=== PATIENT | female | born 2000 | race African-American/Black ===

== ENCOUNTER 2022-12-12 10:38 | Inpatient (IN) | payer OTHER ==
[2022-12-12] VITALS (36 sets, daily range): BP systolic 127–191; BP diastolic 68–106
[~2022-12-12] VITALS: Ht 160 cm; Wt 80.1 kg
[2022-12-12] MEDS ORDERED: LACTATED RINGER'S 1000 ML IV STA ×2 (10:59→15:19)
[2022-12-12] MEDS ORDERED: PROMETHAZINE 25MG/ML 1ML VIAL IV ONE (11:00)
[2022-12-12] MEDS ORDERED: BUTORPHANOL 2 MG/ML 1ML VIAL IV ONE (11:00)
[2022-12-12] MEDS ORDERED: HOME MED LIST COMPLETE! XX SCH (11:30)
[2022-12-12] MEDS ORDERED: ACET325C5 PO (11:33)
[2022-12-12] MEDS ORDERED: MULTTAB20 PO (11:33)
[2022-12-12] MEDS: LR 1,000 ML IV SCH ×2 (12:21→21:51)
[2022-12-12] MEDS ORDERED: CARBOPROST TROMETHAMINE 250 MCG/ML AMP IM PRN (15:00)
[2022-12-12] MEDS ORDERED: OXYTOCIN DRIP 30 UNITS in IV 1 EA IV PRN ×4 (15:00)
[2022-12-12] MEDS ORDERED: TRANEXAMIC ACID INJection 1,000 MG in NS 100 ML IV PRN (15:00)
[2022-12-12 15:43] LABS: TOTAL PROTEIN,RANDOM URINE 16.8 MG/DL (0.0-14.0)
[2022-12-12 15:46] LABS: HEMATOCRIT 32.5 % (36.0-47.0); HEMOGLOBIN 10.3 g/dl (12.0-15.5); MEAN CORPUSCULAR HEMOGLOBIN 24.8 pg (27.0-33.0); MEAN CORPUSCULAR HGB CONC 31.7 g/dl (32.0-36.5); MEAN CORPUSCULAR VOLUME 78.1 fl (80.0-96.0); PLATELET COUNT, AUTOMATED 234 10^3/uL (150-450); RED BLOOD COUNT 4.16 10^6/uL (4.00-5.40); WHITE BLOOD COUNT 10.7 10^3/uL (4.0-10.0)
[2022-12-12 15:48] LABS: CREATININE,RANDOM URINE 38.5 MG/DL
[2022-12-12] MEDS ORDERED: ONDANSETRON 4MG 2ML VIAL IV PRN (16:00)
[2022-12-12] MEDS ORDERED: ePHEDrine SULFATE 25 MG/5 ML(5MG/ML) SYRINGE IVP PRN (16:00)
[2022-12-12] MEDS ORDERED: LR 500 ML IV PRN (16:00)
[2022-12-12] MEDS ORDERED: diphenhydrAMINE 50MG/ML VIAL IV PRN (16:00)
[2022-12-12] MEDS ORDERED: EPIDURAL/PCA KEYS XX PRN (16:00)
[2022-12-12] MEDS ORDERED: NALOXONE INJ 0.4MG/1ML VIAL IV PRN (16:00)
[2022-12-12] MEDS: FENTANYL/ROPIVACAINE/NACL BAG 100 ML EPIDURAL SCH ×2 (16:14→23:56)
[2022-12-12 16:25] LABS: URIC ACID 5.8 MG/DL (3.1-7.8)
[2022-12-12 16:27] LABS: LDH LACTATE DEHYDROGENASE 188 U/L (120-246)
[2022-12-12 16:32] LABS: ALT/SGPT 14 U/L (7.0-40); AST/SGOT 18 U/L (<34); BILIRUBIN,TOTAL 0.9 MG/DL (0.3-1.2); CREATININE FOR GFR 0.58 MG/DL (0.55-1.30); GLOMERULAR FILTRATION RATE > 60.0 (>60)
[2022-12-12] MEDS ORDERED: LR 1,000 ML IV SCH (21:45)
[2022-12-12] MEDS ORDERED: OXYTOCIN DRIP 30 UNITS in IV 1 EA IV SCH (21:45)
[2022-12-13] VITALS (39 sets, daily range): BP systolic 128–200; BP diastolic 64–108
[2022-12-13] MEDS ORDERED: diphenhydrAMINE 50MG/ML VIAL IV ONE (05:05)
[2022-12-13] MEDS ORDERED: LABETALOL 100MG/20ML VIAL IV STA ×2 (05:26→05:55)
[2022-12-13] MEDS ORDERED: hydrALAZINE 20MG/ML 1ML VIAL IV ONE (07:25)
[2022-12-13] MEDS ORDERED: hydrALAZINE 20MG/ML 1ML VIAL As Ordered ONE (07:26)
[2022-12-13] MEDS: FENTANYL/ROPIVACAINE/NACL BAG 100 ML EPIDURAL SCH ×2 (08:00→14:33)
[2022-12-13] MEDS ORDERED: CALCIUM GLUCONATE 1,000 MG in D5W MINI-BAG PLUS 100 ML IV PRN (08:00)
[2022-12-13] MEDS ORDERED: MAG Sulf (L&D) 4 GM/100 ML 4 GM in IV 1 EA IV ONE (08:00)
[2022-12-13] MEDS: MAG Sulf (OBGYN) 20GM/500ML 20,000 MG in IV 1 EA IV SCH ×2 (08:31→18:35)
[2022-12-13 09:51] LABS: TOTAL PROTEIN,RANDOM URINE 49.5 MG/DL (0.0-14.0)
[2022-12-13 09:56] LABS: CREATININE,RANDOM URINE 42.5 MG/DL
[2022-12-13 10:06] LABS: URIC ACID 6.6 MG/DL (3.1-7.8)
[2022-12-13 10:09] LABS: LDH LACTATE DEHYDROGENASE 269 U/L (120-246)
[2022-12-13 10:12] LABS: ALT/SGPT 14 U/L (7.0-40); AST/SGOT 21 U/L (<34); BILIRUBIN,TOTAL 1.7 MG/DL (0.3-1.2); CREATININE FOR GFR 0.94 MG/DL (0.55-1.30); GLOMERULAR FILTRATION RATE > 60.0 (>60)
[2022-12-13] MEDS ORDERED: ceFAZolin SOD 2 GM in IV 1 EA IV ONE (14:25)
[2022-12-13] MEDS ORDERED: AZITHROMYCIN INJ 500 MG, VIAL MATE ADAPTER 1 EACH in NS 250 ML IV ONE (14:25)
[2022-12-13] MEDS ORDERED: OXYTOCIN INJ 10UNITS/ML 1ML VIAL As Ordered ONE (15:14)
[2022-12-13] MEDS ORDERED: MORPHINE PRES-FREE INJ 10 MG/10 ML VIAL As Ordered ONE (15:14)
[2022-12-13] MEDS ORDERED: fentaNYL 100 MCG/2 ML INJECTION As Ordered ONE (15:14)
[2022-12-13] MEDS ORDERED: LIDOCAINE 2% W/EPINEPHRINE 20ML VIAL **PRES FREE As Ordered ONE (15:14)
[2022-12-13] MEDS ORDERED: LIDOCAINE 2% INJ 100 MG/5 ML SYRINGE As Ordered ONE ×2 (15:15→15:16)
[2022-12-13 15:52] LABS: CORD GAS ABE V -4.6; CORD GAS HCO3 V 23.1 MEQ/L; CORD GAS O2 SAT V 33.9 %; CORD GAS PCO2 V 52.6 mmHg; CORD GAS PH V 7.26 UNITS; CORD GAS PO2 V 17.5 mmHg; CORD GAS SBC V 19.2 MEQ/L; CORD GAS TCO2 V 24.7 MEQ/L
[2022-12-13] MEDS ORDERED: ACETAMINOPHEN 1000MG 100ML IV BAG As Ordered ONE (15:54)
[2022-12-13] MEDS ORDERED: KETOROLAC 60MG 2ML VIAL As Ordered ONE (15:54)
[2022-12-13] MEDS ORDERED: MORPHINE 2 MG/ML 1ML VIAL IV PRN (16:25)
[2022-12-13] MEDS ORDERED: OXYTOCIN DRIP 30 UNITS in IV 1 EA IV SCH ×4 (16:25)
[2022-12-13] MEDS ORDERED: LR 1,000 ML IV SCH (16:25)
[2022-12-13] MEDS ORDERED: ONDANSETRON 4MG 2ML VIAL IV PRN (16:25)
[2022-12-13] MEDS ORDERED: oxyCODONE 5MG TAB PO PRN (16:25)
[2022-12-13] MEDS ORDERED: RHOGAM 300MCG (1500IU) INJ IM SCH (16:25)
[2022-12-13] MEDS ORDERED: MOM 30ML SUSPENSION UDC PO PRN (16:25)
[2022-12-13] MEDS ORDERED: OXYTOCIN 30UNITS IN 0.9% NaCl 500ML IV BAG As Ordered ONE (16:34)
[2022-12-13] MEDS: NIFEdipine 30MG XL TAB PO SCH (19:04)
[2022-12-13] MEDS ORDERED: NALBUPHINE HCL 10 MG/ML 1ML AMP IV PRN (19:50)
[2022-12-13] MEDS: DOCUSATE SODIUM 100MG CAPSULE PO SCH (20:57)
[2022-12-13] MEDS: LR 1,000 ML IV SCH (21:35)
[2022-12-13] MEDS: KETOROLAC 30 MG/ML 1ML VIAL IV SCH (22:05)
[2022-12-14] VITALS (14 sets, daily range): BP systolic 128–146; BP diastolic 68–91
[2022-12-14] MEDS: KETOROLAC 30 MG/ML 1ML VIAL IV SCH ×2 (04:08→10:22)
[2022-12-14] MEDS: MAG Sulf (OBGYN) 20GM/500ML 20,000 MG in IV 1 EA IV SCH (04:08)
[2022-12-14] MEDS: ACETAMINOPHEN 500 MG TAB PO PRN ×2 (05:30→17:05)
[2022-12-14 06:51] LABS: HEMATOCRIT 26.5 % (36.0-47.0); HEMOGLOBIN 8.4 g/dl (12.0-15.5); MEAN CORPUSCULAR HEMOGLOBIN 24.6 pg (27.0-33.0); MEAN CORPUSCULAR HGB CONC 31.7 g/dl (32.0-36.5); MEAN CORPUSCULAR VOLUME 77.5 fl (80.0-96.0); PLATELET COUNT, AUTOMATED 206 10^3/uL (150-450); RED BLOOD COUNT 3.42 10^6/uL (4.00-5.40); WHITE BLOOD COUNT 20.6 10^3/uL (4.0-10.0)
[2022-12-14 07:28] LABS: ALBUMIN 1.9 G/DL (3.2-5.2); ALKALINE PHOSPHATASE 144 U/L (46-116); ALT/SGPT 12 U/L (7.0-40); AST/SGOT 18 U/L (<34); BILIRUBIN,TOTAL 1.1 MG/DL (0.3-1.2); BLOOD UREA NITROGEN 6 MG/DL (9-23); CALCIUM LEVEL 7.2 MG/DL (8.5-10.1); CARBON DIOXIDE LEVEL 26 MMOL/L (20-31); CHLORIDE LEVEL 103 MMOL/L (98-107); CREATININE FOR GFR 0.76 MG/DL (0.55-1.30); GLOMERULAR FILTRATION RATE > 60.0 (>60); GLUCOSE, FASTING 99 MG/DL (60-100); POTASSIUM SERUM 3.1 MMOL/L (3.5-5.1); SODIUM LEVEL 137 MMOL/L (136-145); TOTAL PROTEIN 4.4 G/DL (5.7-8.2)
[2022-12-14] MEDS ORDERED: NIFEdipine 30MG XL TAB PO SCH (09:00)
[2022-12-14] MEDS: PRENATAL VITAMINS CHEWABLE TABLET PO SCH (10:23)
[2022-12-14] MEDS: DOCUSATE SODIUM 100MG CAPSULE PO SCH ×2 (10:23→21:18)
[2022-12-14] MEDS: FERROUS SULFATE 325MG TAB PO SCH (10:31)
[2022-12-14] MEDS: NIFEdipine 30MG XL TAB PO SCH (10:32)
[2022-12-14] MEDS: SIMETHICONE 80MG CHEW TAB PO PRN (18:07)
[2022-12-14] MEDS: IBUPROFEN 800 MG TAB PO SCH (18:08)
[2022-12-15] MEDS: ACETAMINOPHEN 500 MG TAB PO PRN (00:48)
[2022-12-15] MEDS: IBUPROFEN 800 MG TAB PO SCH ×3 (01:38→18:15)
[2022-12-15 02:00] VITALS: BP 135/70
[2022-12-15 06:00] VITALS: BP 130/72
[2022-12-15 08:34] LABS: BASO % 0.2 % (0.0-1.0); EOS # 0.1 10^3/uL (0.0-0.5); EOS % 0.8 % (0.0-3.0); HEMATOCRIT 24.6 % (36.0-47.0); HEMOGLOBIN 7.8 g/dl (12.0-15.5); LYMPH # 2.4 10^3/uL (1.5-5.0); LYMPH % 14.1 % (24.0-44.0); MEAN CORPUSCULAR HEMOGLOBIN 24.8 pg (27.0-33.0); MEAN CORPUSCULAR HGB CONC 31.7 g/dl (32.0-36.5); MEAN CORPUSCULAR VOLUME 78.1 fl (80.0-96.0); MONO # 1.2 10^3/uL (0.0-0.8); MONO % 7.1 % (2.0-8.0); NEUTROPHILS # 13.1 10^3/uL (1.5-8.5); PLATELET COUNT, AUTOMATED 219 10^3/uL (150-450); RED BLOOD COUNT 3.15 10^6/uL (4.00-5.40)
[2022-12-15] MEDS: PRENATAL VITAMINS CHEWABLE TABLET PO SCH (08:56)
[2022-12-15] MEDS: FERROUS SULFATE 325MG TAB PO SCH (08:56)
[2022-12-15] MEDS: DOCUSATE SODIUM 100MG CAPSULE PO SCH ×2 (08:56→22:18)
[2022-12-15] MEDS: NIFEdipine 30MG XL TAB PO SCH (08:59)
[2022-12-15] MEDS ORDERED: MEASLES,MUMPS,RUBELLA VACCINE INJ (MMR-II) SC.IMMUN ONE (09:00)
[2022-12-15 10:00] VITALS: BP 139/73
[2022-12-15] MEDS: SIMETHICONE 80MG CHEW TAB PO PRN ×2 (10:07→18:15)
[2022-12-15 14:00] VITALS: BP 128/70
[2022-12-15 18:00] VITALS: BP 140/78
[2022-12-15] MEDS: oxyCODONE 5MG TAB PO PRN (22:17)
[2022-12-15 23:15] VITALS: BP 125/66
[2022-12-16 03:07] VITALS: BP 132/72
[2022-12-16] MEDS: oxyCODONE 5MG TAB PO PRN (03:16)
[2022-12-16] MEDS: IBUPROFEN 800 MG TAB PO SCH (03:17)
[2022-12-16 05:46] LABS: BASO % 0.3 % (0.0-1.0); EOS # 0.3 10^3/uL (0.0-0.5); EOS % 1.8 % (0.0-3.0); HEMATOCRIT 25.8 % (36.0-47.0); HEMOGLOBIN 8.1 g/dl (12.0-15.5); LYMPH # 3.4 10^3/uL (1.5-5.0); LYMPH % 21.5 % (24.0-44.0); MEAN CORPUSCULAR HEMOGLOBIN 24.4 pg (27.0-33.0); MEAN CORPUSCULAR HGB CONC 31.4 g/dl (32.0-36.5); MEAN CORPUSCULAR VOLUME 77.7 fl (80.0-96.0); MONO # 0.8 10^3/uL (0.0-0.8); MONO % 5.3 % (2.0-8.0); NEUTROPHILS # 11.1 10^3/uL (1.5-8.5); NEUTROPHILS % 70.3 % (36.0-66.0); PLATELET COUNT, AUTOMATED 269 10^3/uL (150-450); RED BLOOD COUNT 3.32 10^6/uL (4.00-5.40); WHITE BLOOD COUNT 15.8 10^3/uL (4.0-10.0)
[2022-12-16 06:00] VITALS: BP 134/74
[2022-12-16] MEDS: DOCUSATE SODIUM 100MG CAPSULE PO SCH (08:34)
[2022-12-16] MEDS: PRENATAL VITAMINS CHEWABLE TABLET PO SCH (08:34)
[2022-12-16] MEDS: FERROUS SULFATE 325MG TAB PO SCH (08:34)
[2022-12-16 08:35] VITALS: BP 119/61
[2022-12-16] MEDS: NIFEdipine 30MG XL TAB PO SCH (08:35)
== END 2022-12-16 09:15 | disposition home or self-care (01) | DRG 773 ==
LOC: M LDO 10:38 → M LDI 14:51 → M OBS 12-14 12:24
PROVIDERS: ADMIT Advanced Practice Midwife; ATTEND Obstetrics & Gynecology
PROC: 10D00Z1 Extraction of Products of Conception, Low, Open Approach (ICD-10-PCS; principal; 2022-12-13 14:35)
DX: O14.14 Severe pre-eclampsia complicating childbirth (principal); Z3A.40 40 weeks gestation of pregnancy; O99.02 Anemia complicating childbirth; D64.9 Anemia, unspecified; O26.03 Excessive weight gain in pregnancy, third trimester; O48.0 Post-term pregnancy; O62.1 Secondary uterine inertia; O64.0XX0 Obstructed labor due to incomplete rotation of fetal head, not applicable or unspecified; O64.5XX0 Obstructed labor due to compound presentation, not applicable or unspecified; Z37.0 Single live birth